=== PATIENT | female | born 1980 | race Caucasian/White ===

== ENCOUNTER 2016-10-21 05:39 | Outpatient (CLI) | payer BC ==
[~2016-10-21] VITALS: Ht 165.1 cm; Wt 67.1 kg
[2016-10-21] MEDS ORDERED: BUPR150T9 PO (13:34)
[2016-10-21] MEDS ORDERED: NALT1TAB PO (13:34)
== END 2016-10-21 13:40 ==
LOC: PREOP 05:39
PROVIDERS: ATTEND Obstetrics & Gynecology
DX: Z01.818 Encounter for other preprocedural examination (principal); N93.8 Other specified abnormal uterine and vaginal bleeding; D64.9 Anemia, unspecified

== ENCOUNTER 2016-10-28 08:56 | Day surgery (SDC) | payer BC ==
--- NOTE | 2016-10-26 14:39 | HISTORY AND PHYSICAL ---
DATE OF ADMISSION: 10/28/2016 The patient has a history of dysfunctional and abnormal bleeding. She has tried oral contraceptive. She has tried cyclic progesterone and her bleeding continues to be intermittent, episodically heavy and unpredictable. She found the oral contraceptives side effects intolerable and could not continue them. She is scheduled now for hysteroscopy with D\T\C and endometrial ablation to be performed on 10/28/2016. ALLERGIES: None. MEDICATIONS: 1. Temovate for lichen sclerosus p.r.n. 2. Bystolic for blood pressure. PAST MEDICAL HISTORY: 1. includes her hypertension. 2. Lichen sclerosus of the labia PAST SURGICAL HISTORY: 1. Includes LEEP procedure in the past on the cervix. 2. Bilateral ganglion cyst removal from the wrist on July 2004. OBSTETRIC HISTORY: Includes a term spontaneous vaginal delivery in April 2008. FAMILY HISTORY: Noncontributory. SOCIAL HISTORY: The patient is . She denies drug, tobacco or alcohol use. She has no history of STDs. REVIEW OF SYSTEMS: As per the HPI. PHYSICAL EXAM: HEENT EXAM: Normal. NECK: Supple with no lymphadenopathy. No thyromegaly. HEART: Regular rhythm with no murmur. CHEST: Clear to auscultation bilaterally. ABDOMEN: Soft, nontender, nondistended. EXTREMITIES: Extremities show no clubbing or cyanosis. There is no Homans sign. PELVIC EXAM: Reveals normal internal and external genitalia. The cervix is parous and benign. There is no cervical motion tenderness. The urethra is well supported. CERVIX: The cervix is normal in size, consistency and contour. There is a small ectropion. UTERUS: Uterus is mid plane to slightly anteverted, normal in consistency in contour. ADNEXAL EXAM: Is unremarkable. ASSESSMENT: Dysfunctional and irregular bleeding in a patient with possible history of PCO and with ultrasound findings that are not definitive. She has tried oral contraceptives and cyclic progesterone without satisfactory effect on her bleeding. The plan now is hysteroscopy with the D\T\C and proceed with GEA at the same time. Her has had a vasectomy. Their childbearing desires have been fulfilled. The patient has been counseled regarding surgical risks, complications, recovery follow-up recurrence of her bleeding and failure to cure. All of her questions have been answered. She is ready to proceed. The procedure is scheduled for October 28, 2016. Job ID: [id number] Dictated Date: 10/26/2016 13:46:54 Deaf Interpreter Date: 10/26/2016 14:28:36/noemí
[~2016-10-28] VITALS: Ht 165.1 cm; Wt 67.1 kg
[~2016-10-28 08:56] MED LIST: BUPR150T9 PO; NALT1TAB PO
[2016-10-28 09:19] LABS: RED BLOOD COUNT 4.48 10^6/uL (4.35-5.85); RED CELL DISTRIBUTION WIDTH 12.1 % (10.0-14.5); WHITE BLOOD COUNT 6.8 10^3/uL (4.3-11.0)
[2016-10-28 09:20] VITALS: BP 135/81
[2016-10-28] MEDS ORDERED: LACTATED RINGERS 1,000 ML IV PRN (09:25)
[2016-10-28] MEDS ORDERED: ceFAZolin 1,000 MG (ANCEF) VIAL ONE (09:39)
[2016-10-28] MEDS ORDERED: NS (IVPB) 50 ML ONE (09:39)
[2016-10-28] MEDS ORDERED: MIDAZOLAM 2 MG/2 ML (VERSED) VIAL ONE (09:57)
[2016-10-28] MEDS ORDERED: proPOfol 200 MG/20 ML (DIPRIVAN) VIAL IV ONE (09:57)
[2016-10-28] MEDS ORDERED: fentaNYL INJECTION 100 MCG/2 ML AMP ONE (09:57)
[2016-10-28] MEDS ORDERED: LIDOCAINE PF 2% 10 ML (XYLOCAINE) AMP ONE (09:57)
[2016-10-28] MEDS ORDERED: CATHETER FLUSH 10 ML SYR IV PRN (10:00)
[2016-10-28] MEDS ORDERED: ceFAZolin 1 GM/NS 50 ML IVPB IV ONE ×2 (10:00)
[2016-10-28] MEDS ORDERED: D5 LR IV SOLUTION 1,000 ML IV SCH (10:20)
--- NOTE | 2016-10-28 10:20 | Progress Note-Pre Operative ---
Pre-Operative Progress Note H&P Reviewed The H&P was reviewed, patient examined and no changes noted. Date H&P Reviewed: Oct 28, 2016 Time H&P Reviewed: 10:20 Pre-Operative Diagnosis: DYSFUNCTIONAL UTERINE BLEEDING/MENOMETRORRHAGIA JONAS CARMONA MD Oct 28, 2016 10:20 am
[2016-10-28] MEDS ORDERED: OXYC-202 PO (10:22)
[2016-10-28] MEDS ORDERED: SEVOFLURANE (ULTANE) 15 ML INHAL SOLN ONE ×2 (10:23→11:15)
[2016-10-28] MEDS ORDERED: LACTATED RINGERS 1,000 ML IV ONE ×2 (10:23→11:08)
--- NOTE | 2016-10-28 10:23 | Discharge Instructions ---
Discharge Instructions Discharge Medications New, Converted or Re-Newed RX: RX on Chart Patient Instructions Patient Instructions: DIRECTED Return to The Hospital For: DIRECTED Activity & Diet Discharge Diet: No Restrictions Activity as Tolerated: No Orders-Post D/C & Referrals Follow Up Appt: Call to make follow up appt. for patient in 2 weeks. Activity: Rest for 24 hours, than as tolerated. Diet: As tolerated-Clear Liquids only if nauseated. Tomorrow, may shower or tub bathe as desired. No driving for 24 hours, no alcoholic beverages for 24 hours, and nothing per vagina (no tampons, douching, or intercourse) for 2 weeks. Patient to return to the clinic as soon as possible for: Temperature greater than 101F, Severe Pain, Foul discharge from incision or vagina, Excessive Bleeding (more than a period). JONAS CARMONA MD Oct 28, 2016 10:23 am
[2016-10-28] MEDS ORDERED: PROMETHAZINE INJ 25 MG/ML (PHENERGAN) AMP IM ONE (10:30)
[2016-10-28] MEDS ORDERED: oxyCODONE/APAP 10/325MG (PERCOCET 10) TABLET PO PRN (10:30)
[2016-10-28] MEDS ORDERED: KETOROLAC 30 MG/ML VIAL IVP ONE ×2 (10:30→11:45)
[2016-10-28] MEDS ORDERED: ONDANSETRON 4 MG/2 ML (SDV) Z0FRAN IVP PRN ×2 (10:30→11:45)
[2016-10-28] MEDS ORDERED: MEPERIDINE (DEMEROL) INJ 100 MG/ML IM ONE (10:30)
[2016-10-28] MEDS: MEPERIDINE (DEMEROL) INJ 50 MG/ML IVP PRN ×2 (11:30→11:35)
[2016-10-28] MEDS ORDERED: MEPERIDINE (DEMEROL) INJ 50 MG/ML ONE (11:34)
[2016-10-28] MEDS ORDERED: morphine INJ 10 MG/ML 1ML (SYR OR VIAL) IVP PRN (11:45)
[2016-10-28] MEDS ORDERED: HYDROmorphone (DILAUDID) 2 MG/ML VIAL IVP PRN (11:45)
[2016-10-28] MEDS ORDERED: fentaNYL INJECTION 100 MCG/2 ML AMP IVP PRN (11:45)
[2016-10-28 12:25] VITALS: BP 138/81
[2016-10-28 12:55] VITALS: BP 153/96
[2016-10-28 13:00] VITALS: BP 138/81
--- NOTE | 2016-10-31 14:00 | OPERATIVE REPORT ---
PROCEDURE PHYSICIAN: JONAS CARMONA DATE OF PROCEDURE: 10/28/2016 PREOPERATIVE DIAGNOSES: 1. Dysfunctional uterine bleeding. 2. Menometrorrhagia. POSTOPERATIVE DIAGNOSES: 1. Dysfunctional uterine bleeding. 2. Menometrorrhagia. OPERATIVE PROCEDURE: Hysteroscopy with directed biopsy and D\T\C followed by global endometrial ablation. OPERATIVE DESCRIPTION: With the patient in the supine position under satisfactory general anesthesia she was repositioned in the dorsal lithotomy position in Gume stirrups and prepped and draped usual fashion for vaginal surgery. The urinary bladder was emptied with a straight catheter. Weighted speculum placed in posterior fornix of vagina. Cervix exposed and grasped anteriorly with single-tooth tenaculum. The uterus sounded to 12 cm with uterine sound. The cervix was then serially dilated with Gianfranco dilators to accommodate a hysteroscope, which was introduced and using glycine as distending medium, the endometrial cavity was examined. There was a polypoid mass emanating from the posterior surface of the uterus. Otherwise, the endometrial cavity appeared to be in the omental phase for this patient. The polypoid mass was biopsied off directly and sent to pathology, labeled, as such. The endometrial cavity was then sharply curettaged in all 4 quadrants to a good uterine cry with removal of a small amount of additional tissue. The hysteroscope was reintroduced now as a resectoscope using rollerball and power setting of 55 alcaraz. The endometrial cavity was cauterized starting anteriorly continuing from the right tubal ostium around to the left tubal ostium and insuring good thermal effect throughout. The posterior surface of the uterus was then treated in the same manner. Good thermal effect was noted throughout the endometrial cavity, and down to the internal cervical os and down onto the internal cervical os. The hysteroscope, resectoscope was now removed as was the tenaculum, there was some bleeding from both puncture sites that was controlled with a iturgv-vb-ovwtu suture of 3-0 Vicryl at each puncture site on the anterior cervix. Sponge and needle counts were correct on completion of procedure. Estimated blood loss was less than 50 mL. Approximately 2000 mL of glycine were used and almost 2000 mL were recovered. The patient tolerated the procedure well, and was uneventfully awakened from general anesthesia and transferred to recovery room in stable condition. Job ID: [id number] Dictated Date: 10/28/2016 11:21:25 Architect Manager Date: 10/31/2016 13:55:05 / beltran
== END 2016-10-28 13:12 | disposition home or self-care (01) ==
LOC: SDC 08:56
PROVIDERS: ATTEND Obstetrics & Gynecology
DX: N93.8 Other specified abnormal uterine and vaginal bleeding (principal); N92.1 Excessive and frequent menstruation with irregular cycle
CPT/HCPCS: 36415; 84703; 85027; 87081; 88305

== ENCOUNTER → 2019-01-30 | Outpatient (CLI) | payer OTHER ==
[~2019-01-30] MED LIST changes: +OXYC1TAB12 PO
[2019-01-30 07:52] LABS: BASOPHILS # (AUTO) 0.1 10^3/uL (0.0-0.1); BASOPHILS % (AUTO) 1 % (0-10); EOSINOPHILS # (AUTO) 0.3 10^3/uL (0.0-0.3); EOSINOPHILS % (AUTO) 3 % (0-10); HEMATOCRIT 43 % (35-52); HEMOGLOBIN 14.2 G/DL (11.5-16.0); LYMPHOCYTES # (AUTO) 2.1 X 10^3 (1.0-4.0); LYMPHOCYTES % (AUTO) 25 % (12-44); MEAN CORPUSCULAR HEMOGLOBIN 31 PG (25-34); MEAN CORPUSCULAR HGB CONC 33 G/DL (32-36); MEAN CORPUSCULAR VOLUME 95 FL (80-99); MEAN PLATELET VOLUME 9.2 FL (7.4-10.4); MONOCYTES # (AUTO) 0.6 X 10^3 (0.0-1.0); MONOCYTES % (AUTO) 8 % (0-12); NEUTROPHILS # (AUTO) 5.4 X 10^3 (1.8-7.8); NEUTROPHILS % (AUTO) 64 % (42-75); PLATELET COUNT 305 10^3/uL (130-400); WHITE BLOOD COUNT 8.4 10^3/uL (4.3-11.0)
[2019-01-30 08:12] LABS: ALANINE AMINOTRANSFERASE 20 U/L (0-55); ALBUMIN 3.5 GM/DL (3.2-4.5); ALKALINE PHOSPHATASE 67 U/L (40-136); BILIRUBIN,TOTAL 0.4 MG/DL (0.1-1.0); BUN/CREATININE RATIO 11; CALCIUM 8.7 MG/DL (8.5-10.1); CARBON DIOXIDE 23 MMOL/L (21-32); CHLORIDE 109 MMOL/L (98-107); CHOLESTEROL 176 MG/DL (< 200); CREATININE SERUM 0.83 MG/DL (0.60-1.30); GFR ESTIMATED > 60; GLUCOSE 109 MG/DL (70-105); HDL CHOLESTEROL 55 MG/DL (40-60); POTASSIUM 3.9 MMOL/L (3.6-5.0); SODIUM 139 MMOL/L (135-145); TOTAL PROTEIN 5.8 GM/DL (6.4-8.2); TRIGLYCERIDES 97 MG/DL (<150); VLDL CHOLESTEROL 19 MG/DL (5-40)
[2019-01-30 08:18] LABS: ERYTHROCYTE SEDIMENTATION RATE 4 MM/HR (0-20)
== END ==
LOC: LAB 07:27
PROVIDERS: ATTEND Nurse Practitioner Family
DX: M79.9 Soft tissue disorder, unspecified (principal)
CPT/HCPCS: 36415; 80053; 80061; 83036; 84443; 85025; 85652; 86141

== ENCOUNTER 2019-03-01 12:37 | Outpatient (RCR) | payer OTHER | END 2019-05-30 | disposition home or self-care (01) | LOC: CARD 12:37 | PROVIDERS: ATTEND Nurse Practitioner Family | DX: R55 Syncope and collapse (principal); R00.0 Tachycardia, unspecified; R53.83 Other fatigue | CPT/HCPCS: 93225; 93226 ==

== ENCOUNTER → 2019-03-01 | Outpatient (CLI) | payer OTHER | LOC: LAB 07:48 | PROVIDERS: ATTEND Nurse Practitioner Family | DX: R00.0 Tachycardia, unspecified (principal); R55 Syncope and collapse; R53.83 Other fatigue | CPT/HCPCS: 36415; 82728; 86618; 86663; 86664; 86665; 86666; 86668; 86757; 86788; 86789 ==

== ENCOUNTER 2019-07-04 12:07 | Outpatient (CLI) | payer OTHER ==
[~2019-07-04] VITALS: Ht 162.6 cm; Wt 66.8 kg
[2019-07-04 12:16] VITALS: BP 148/97
[2019-07-04 12:54] LABS: BASOPHILS % (AUTO) 0 % (0-10); EOSINOPHILS # (AUTO) 0.2 10^3/uL (0.0-0.3); EOSINOPHILS % (AUTO) 2 % (0-10); HEMATOCRIT 41 % (35-52); HEMOGLOBIN 13.4 G/DL (11.5-16.0); LYMPHOCYTES # (AUTO) 1.8 X 10^3 (1.0-4.0); LYMPHOCYTES % (AUTO) 19 % (12-44); MEAN CORPUSCULAR HEMOGLOBIN 31 PG (25-34); MEAN CORPUSCULAR HGB CONC 33 G/DL (32-36); MEAN CORPUSCULAR VOLUME 94 FL (80-99); MEAN PLATELET VOLUME 9.4 FL (7.4-10.4); MONOCYTES # (AUTO) 0.7 X 10^3 (0.0-1.0); MONOCYTES % (AUTO) 8 % (0-12); NEUTROPHILS # (AUTO) 6.6 X 10^3 (1.8-7.8); NEUTROPHILS % (AUTO) 71 % (42-75); PLATELET COUNT 335 10^3/uL (130-400); WHITE BLOOD COUNT 9.3 10^3/uL (4.3-11.0)
[2019-07-05] MEDS ORDERED: OXYC1TAB87 PO (14:49)
[2019-07-05] MEDS ORDERED: IBUP-1780 PO (14:49)
[2019-07-05] MEDS ORDERED: DOCU-143 PO (14:49)
== END 2019-07-04 14:37 | disposition home or self-care (01) ==
LOC: PREOP 12:07
PROVIDERS: ATTEND Obstetrics & Gynecology
DX: Z01.812 Encounter for preprocedural laboratory examination (principal); Z11.2 Encounter for screening for other bacterial diseases; N93.0 Postcoital and contact bleeding; D64.9 Anemia, unspecified
CPT/HCPCS: 36415; 84703; 85025; 87081

== ENCOUNTER → 2019-12-17 | Outpatient (CLI) | payer OTHER ==
[~2019-12-17] MED LIST changes: +DOCU-143 PO; +IBUP-1780 PO; +OXYC1TAB87 PO
--- NOTE | 2019-12-17 19:58 | Diagnostic Imaging Report ---
EXAM: Digital mammogram bilateral screening COMPARISON: This study was compared to the prior exam of 05/01/2015. There are no current complaints. FINDINGS: The fibroglandular tissue in both breasts is heterogeneously dense. This does limit the sensitivity of this exam. Overall, there has been no significant change when compared to the prior study. There is no primary or secondary sign of malignancy noted. The stereotactic clip in the left breast seen previously is again evident and no different. IMPRESSION: 1. There is no evidence of malignancy. 2. The patient should have her annual bilateral screening mammogram on schedule in December 2020. ACR BI-RADS Category 1: Negative. Result letter will be mailed to the patient. Note: At least 10% of breast cancer is not imaged by mammography. Dictated by: Dictated on workstation # [id number]
== END ==
LOC: RAD 08:35
PROVIDERS: ATTEND Obstetrics & Gynecology
DX: Z12.31 Encounter for screening mammogram for malignant neoplasm of breast (principal)
CPT/HCPCS: 77063; 77067

== ENCOUNTER → 2020-03-27 | Outpatient (CLI) | payer OTHER ==
[2020-03-27 08:03] LABS: BASOPHILS # (AUTO) 0.1 10^3/uL (0.0-0.1); BASOPHILS % (AUTO) 1 % (0-10); EOSINOPHILS # (AUTO) 0.3 10^3/uL (0.0-0.3); EOSINOPHILS % (AUTO) 6 % (0-10); HEMATOCRIT 42 % (35-52); HEMOGLOBIN 14.2 G/DL (11.5-16.0); LYMPHOCYTES # (AUTO) 1.7 X 10^3 (1.0-4.0); LYMPHOCYTES % (AUTO) 27 % (12-44); MEAN CORPUSCULAR HEMOGLOBIN 31 PG (25-34); MEAN CORPUSCULAR HGB CONC 34 G/DL (32-36); MEAN CORPUSCULAR VOLUME 93 FL (80-99); MEAN PLATELET VOLUME 9.4 FL (7.4-10.4); MONOCYTES # (AUTO) 0.5 X 10^3 (0.0-1.0); MONOCYTES % (AUTO) 8 % (0-12); NEUTROPHILS # (AUTO) 3.7 X 10^3 (1.8-7.8); NEUTROPHILS % (AUTO) 59 % (42-75); PLATELET COUNT 334 10^3/uL (130-400); WHITE BLOOD COUNT 6.2 10^3/uL (4.3-11.0)
[2020-03-27 08:15] LABS: CHLORIDE 109 MMOL/L (98-107); SODIUM 141 MMOL/L (135-145)
[2020-03-27 08:16] LABS: CALCIUM 8.8 MG/DL (8.5-10.1)
[2020-03-27 08:17] LABS: GLUCOSE 127 MG/DL (70-105); TOTAL PROTEIN 6.9 GM/DL (6.4-8.2)
[2020-03-27 08:18] LABS: CARBON DIOXIDE 20 MMOL/L (21-32)
[2020-03-27 08:19] LABS: BILIRUBIN,TOTAL 0.3 MG/DL (0.1-1.0)
[2020-03-27 08:20] LABS: ALKALINE PHOSPHATASE 85 U/L (40-136); CREATININE SERUM 0.87 MG/DL (0.60-1.30); GFR ESTIMATED > 60
[2020-03-27 08:21] LABS: BUN/CREATININE RATIO 13
[2020-03-27 08:23] LABS: ALANINE AMINOTRANSFERASE 31 U/L (0-55)
== END ==
LOC: LAB 07:36
PROVIDERS: ATTEND Nurse Practitioner Family
DX: R53.83 Other fatigue (principal); R20.2 Paresthesia of skin
CPT/HCPCS: 36415; 80053; 82306; 82607; 82746; 85025; 86663; 86664; 86665

== ENCOUNTER → 2020-04-03 | Outpatient (CLI) | payer OTHER | LOC: LAB 09:22 | PROVIDERS: ATTEND Family Medicine | DX: R73.09 Other abnormal glucose (principal) | CPT/HCPCS: 36415; 83036 ==

== ENCOUNTER → 2020-06-02 | Outpatient (CLI) | payer OTHER ==
--- NOTE | 2020-06-02 16:52 | Diagnostic Imaging Report ---
INDICATION: Right upper quadrant abdominal pain. TECHNIQUE: Gallbladder sonography performed in the routine fashion. FINDINGS: The liver shows normal echogenicity with no focal lesions. Portal vein is patent. Gallbladder shows multiple mobile gallstones and sludge. There is no significant gallbladder wall thickening or biliary dilatation. The common duct measured 6 mm. There is a normal appearance of the pancreas. Visualized portions of the aorta and IVC are normal. The right kidney measured 9 cm in length. There is no ascites. IMPRESSION: Multiple gallstones as well as sludge in the gallbladder, without gallbladder wall thickening or biliary dilatation. Dictated by: Dictated on workstation # [id number]
== END ==
LOC: RAD 16:00
PROVIDERS: ATTEND Nurse Practitioner Family
DX: K80.20 Calculus of gallbladder without cholecystitis without obstruction (principal)
CPT/HCPCS: 76705

== ENCOUNTER 2020-07-06 05:45 | Outpatient (RCR) | payer OTHER ==
[~2020-07-06] VITALS: Ht 165.1 cm; Wt 70.5 kg
[~2020-07-06 05:45] MED LIST changes: +LANS30TA3 PO; +PANT40TA52 PO
== END 2020-07-06 11:03 | disposition home or self-care (01) ==
LOC: PREOP 05:45
PROVIDERS: ATTEND Surgery
DX: Z01.812 Encounter for preprocedural laboratory examination (principal); K80.20 Calculus of gallbladder without cholecystitis without obstruction; Z20.828 Contact with and (suspected) exposure to other viral communicable diseases
CPT/HCPCS: 87635

== ENCOUNTER 2020-07-08 06:16 | Day surgery (SDC) | payer OTHER ==
[~2020-07-08] VITALS: Ht 165 cm; Wt 71.7 kg
[2020-07-08] VITALS (11 sets, daily range): BP systolic 112–138; BP diastolic 57–87
[2020-07-08] MEDS ORDERED: ceFAZolin INJECTION 1,000 MG in WATER (STERILE) FOR INJECTION 10 ML IV ONE (06:45)
[2020-07-08] MEDS: LACTATED RINGERS 1,000 ML IV PRN ×2 (06:50→08:45)
[2020-07-08] MEDS ORDERED: ONDANSETRON 4 MG/2 ML (SDV) Z0FRAN IV ONE (07:00)
[2020-07-08] MEDS ORDERED: FAMOTIDINE 20MG/2ML IV (PEPCID) IV ONE (07:00)
[2020-07-08 07:02] LABS: BASOPHILS % (AUTO) 0 % (0-10); EOSINOPHILS # (AUTO) 0.3 10^3/uL (0.0-0.3); EOSINOPHILS % (AUTO) 5 % (0-10); HEMATOCRIT 41 % (35-52); HEMOGLOBIN 13.3 g/dL (11.5-16.0); LYMPHOCYTES # (AUTO) 2.1 10^3/uL (1.0-4.0); LYMPHOCYTES % (AUTO) 30 % (12-44); MEAN CORPUSCULAR HEMOGLOBIN 32 pg (25-34); MEAN CORPUSCULAR HGB CONC 33 g/dL (32-36); MEAN CORPUSCULAR VOLUME 96 fL (80-99); MONOCYTES # (AUTO) 0.5 10^3/uL (0.0-1.0); MONOCYTES % (AUTO) 8 % (0-12); NEUTROPHILS # (AUTO) 4.1 10^3/uL (1.8-7.8); NEUTROPHILS % (AUTO) 57 % (42-75); PLATELET COUNT 323 10^3/uL (130-400); WHITE BLOOD COUNT 7.1 10^3/uL (4.3-11.0)
[2020-07-08] MEDS ORDERED: ONDANSETRON 4 MG/2 ML (SDV) Z0FRAN ONE (07:06)
[2020-07-08] MEDS ORDERED: SEVOFLURANE (ULTANE) 15 ML INHAL SOLN ONE ×2 (07:06→09:00)
[2020-07-08] MEDS ORDERED: proPOfol 200 MG/20 ML (DIPRIVAN) VIAL IV ONE (07:06)
[2020-07-08] MEDS ORDERED: LIDOCAINE PF 2% 5 ML (XYLOCAINE) VIAL ONE (07:06)
[2020-07-08] MEDS ORDERED: ROCURONIUM 10 MG/ML 5 ML SYRINGE IV ONE (07:06)
[2020-07-08] MEDS ORDERED: fentaNYL INJECTION 100 MCG/2 ML AMP ONE (07:08)
[2020-07-08] MEDS ORDERED: MIDAZOLAM 2 MG/2 ML (VERSED) VIAL ONE (07:08)
[2020-07-08] MEDS ORDERED: IOPAMIDOL 61% 30 ML (ISOVUE 300) VIAL ONE (07:13)
[2020-07-08] MEDS ORDERED: LIDOCAINE/EPI 1%-1:100,000 (XYLOCAINE) 50 ML ONE (07:13)
[2020-07-08] MEDS ORDERED: GLYCOPYRROLATE 0.2 MG/ML (ROBINUL) 2 ML VIAL ONE (08:47)
[2020-07-08] MEDS ORDERED: NEOSTIGMINE 3 MG/3 ML VIAL ONE (08:47)
--- NOTE | 2020-07-08 09:00 | Progress Note-Post Operative ---
Post-Operative Progess Note Surgeon (s)/Intervention Specialist (s) Surgeon ELOINA BERMAN DO Intervention Specialist: Dr. Welsh to assist in retraction dissection and closure Pre-Operative Diagnosis symptomatic choleliathisis Post-Operative Diagnosis same Procedure & Operative Findings Date of Procedure 07/08/20 Procedure Performed/Findings PROCEDURE: Laparoscopic cholecystectomy with intraoperative cholangiogram. COMPLICATIONS: None. PROCEDURE: The patient was taken to the operating suite and was prepped and draped in sterile fashion. A surgical pause was performed. Just superior to the umbilicus, a 12 mm incision was made. Dissection was taken down to the fascia, which was then scored and grasped with a Mica and the abdomen was then entered. A 0 Vicryl suture was placed in a bptuxl-ul-bnzmm fashion and a Black trocar was placed and secured. Pneumoperitoneum was achieved. A 5mm trochar place in the subxyphoid and 2 in the right upper quadrant. The gallbladder was then grasped and elevated. Small area of adhesions were taken down blunt dissection and cautery. The cystic duct, and cystic artery were then dissected out. Clip was placed on the distal portion of the cystic duct which was then partially transected. An arrow catheter was inserted into the duct. The cholangiogram was then performed. No filing defects and contrast made its way into the duodenum. Catheter removed. Clips were placed on proximal portion of the cystic duct and then the duct was then transected. Clips were placed along the proximal and distal portion of the cystic artery which was then transected. Hook cautery was used to dissect the gallbladder from the gallbladder fossa achieving hemostasis. The gallbladder was placed in an Endobag and removed through the 12 mm trocar site. The abdomen was then reinspected. Copious amounts of irrigation were used to irrigate the abdomen and there were no signs of active bleeding. Hemostasis had been achieved. The 12 mm fascial defect was then closed with 0 Vicryl suture that had been placed in a [id number]-[id number]-qsgkl fashion. The abdomen was then desufflated, the trocars were removed. The abdomen was then washed and dried. The skin was then closed using 4-0 Monocryl in a subcuticular fashion. The abdomen was washed and dried and Skin Affix was place over incisions. Patient tolerated the procedure well without any complications and was taken to the recovery room in stable condition. Anesthesia Type general Estimated Blood Loss Estimated blood loss (mL): minimal Specimens/Packing Specimens Removed gallbladder ELOINA BERMAN DO Jul 08, 2020 09:00
[2020-07-08] MEDS ORDERED: HYDR-4226 PO (09:01)
[2020-07-08] MEDS ORDERED: DOCU-143 PO (09:01)
--- NOTE | 2020-07-08 09:02 | Discharge Inst-Simple/Standard ---
Discharge Inst-Standard Discharge Medications New, Converted or Re-Newed RX: RX on Chart Patient Instructions/Follow Up Plan of Care/Instructions/FU: 2 weeks Timothy Activity as Tolerated: No Discharge Diet: Regular Diet Other Inst to Patient Follow up Appt: Make appointment for 2 weeks. Instructions: No lifting greater than 10 pounds. No strenuous activity. May shower in 24 hours, no tub bath or soaking. Use incentive spirometer at home as directed. No Smoking Skin/Wound Care: You have special glue over incision, it will fall off on it's own. Symptoms to Report: Appetite Changes, Extremity Discoloration, Numbness/Tingling, Swelling Increased, Bleeding Excessive, Eyesight Changes, Pain Increased, Urine Color Change, Constipation(Persistent), Fever over 101 degree F, Pain/Pressure in ches t, Urinating Difficulty, Cough Up/Vomit Blood, Heart Beat Irreg/Pounding, Pain/Pressure in jaw, Vaginal Bleeding Increase, Cramps in feet or legs, Lightheadedness, Pain/Pressure in shoulder, Diarrhea(Persistent), Memory Changes Suddenly, Questions/Concerns, Weight gain consecutive days, Dizziness/Fainting, Nausea/Vomiting, Shortness of Breath, Weight gain over 2 pounds. If eyes or skin turn yellow notify physician. If questions or concerns contact your physician Or seek help at emergency department. ELOINA BERMAN DO Jul 08, 2020 09:02
--- NOTE | 2020-07-08 09:07 | Anesthesia-General Post-Op ---
General Patient Condition Mental Status/LOC: Same as Preop Cardiovascular: Satisfactory Nausea/Vomiting: Absent Respiratory: Satisfactory Pain: Controlled Complications: Absent Post Op Complications Complications None Follow Up Care/Instructions Patient Instructions None needed. Anesthesia/Patient Condition Patient Condition Patient is doing well, no complaints, stable vital signs, no apparent adverse anesthesia problems. No complications reported per nursing. ANAHI RDZ CRNA Jul 08, 2020 09:07
[2020-07-08] MEDS ORDERED: morphine INJ 10 MG/ML 1ML (SYR OR VIAL) IVP ONE (09:15)
[2020-07-08] MEDS ORDERED: MEPERIDINE (DEMEROL) INJ 50 MG/ML IVP ONE (09:15)
[2020-07-08] MEDS ORDERED: PROMETHAZINE INJ 25 MG/ML (PHENERGAN) AMP IVP ONE (09:15)
[2020-07-08] MEDS: ONDANSETRON 4 MG/2 ML (SDV) Z0FRAN IVP PRN ×2 (09:30→10:16)
[2020-07-08] MEDS ORDERED: HYDROcodone/APAP 5 MG/325 MG (LORTAB) TAB ONE (10:07)
[2020-07-08] MEDS ORDERED: HYDROcodone/APAP 5 MG/325 MG (LORTAB) TAB PO ONE (10:15)
--- NOTE | 2020-07-08 14:42 | Diagnostic Imaging Report ---
INDICATION: Cholecystectomy. EXAMINATION: 6 seconds of fluoroscopy time were utilized during laparoscopic cholecystectomy. FINDINGS: Submitted images showed opacification of the central intrahepatic ducts as well as the extrahepatic ducts spilling freely into the duodenum. No suspicious filling defect. IMPRESSION: Fluoroscopy utilized during intraoperative cholangiography with no pathological finding demonstrated. Dictated by: Dictated on workstation # [id number]
== END 2020-07-08 11:10 ==
LOC: SDC 06:16
PROVIDERS: ATTEND Surgery
DX: K80.10 Calculus of gallbladder with chronic cholecystitis without obstruction (principal); K21.9 Gastro-esophageal reflux disease without esophagitis; Z79.899 Other long term (current) drug therapy; Z88.5 Allergy status to narcotic agent; Z90.710 Acquired absence of both cervix and uterus
CPT/HCPCS: 36415; 76000; 85025; 87081; 88304

== ENCOUNTER 2020-07-16 10:57 | Emergency (ER) | payer OTHER ==
[~2020-07-16] VITALS: Ht 165 cm; Wt 70.0 kg
[~2020-07-16 10:57] MED LIST changes: +HYDR-4226 PO
[2020-07-16] MEDS ORDERED: LACTATED RINGERS 1,000 ML IV ONE (11:45)
[2020-07-16] MEDS ORDERED: KETOROLAC 30 MG/ML VIAL IVP ONE (11:45)
--- NOTE | 2020-07-16 11:45 | ED General ---
General Stated Complaint: PAIN FROM SURGERY Source of Information: Patient Exam Limitations: No Limitations History of Present Illness Date Seen by Provider: Jul 16, 2020 Time Seen by Provider: 11:18 Initial Comments Patient presents ER by private conveyance from home with chief complaint of generalized body aches mild nausea, abdominal discomfort, constipation and some mild shortness of air without productive cough. Her symptoms started yesterday and she had a rapid and a send out Covid which were both negative. 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 She had surgery by Dr. Berman earlier in the week for her gallbladder laparoscopically. She is been using hydrocodone for her pain as well as NSAIDs. She is taking Colace and has had decent appetite and fluid intake. She was also started back to work today. Her primary care doctor is Dr. Sapp who started her on several vitamins and medications for prevent ative based on her exposure to COVID-19. Patient has some generalized body aches as well as pain in her left costovertebral angle and dysuria. Allergies and Home Medications Allergies Coded Allergies: codeine (Verified Adverse Reaction, Mild, nausea, 07/08/20) Home Medications Docusate Sodium 100 Mg Capsule, 100 MG PO BID Prescribed by: ELOINA BERMAN on 07/08/20900 Hydrocodone/Acetaminophen 1 Each Tablet, 1 TAB PO Q4-6HR Prescribed by: ELOINA BERMAN on 07/08/20900 Lansoprazole 30 Mg Tab.rap., 30 MG PO DAILY, (Reported) Pantoprazole Sodium 40 Mg Tablet., 40 MG PO DAILY, (Reported) Patient Home Medication List Home Medication List Reviewed: Yes Review of Systems Review of Systems Constitutional: No chills, No diaphoresis EENTM: No ear discharge, No ear pain Respiratory: No cough; short of breath Cardiovascular: No chest pain, No Hx of Intervention, No palpitations Gastrointestinal: abdominal pain, constipation; No diarrhea; nausea; No vomiting Genitourinary: No discharge; dysuria; No frequency : No (Status post hysterectomy) Musculoskeletal: see HPI, back pain; No joint pain All Other Systems Reviewed Negative Unless Noted: Yes Past Klnfpvt-Orflsn-[place] Hx Patient Social History Alcohol Use: Denies Use Recreational Drug Use: No Smoking Status: Never a Smoker Recent Foreign Travel: No Contact w/Someone Who Travel: No Recent Hopitalizations: No Immunizations Up To Date Date of Influenza Vaccine: Apr 16, 2020 Seasonal Allergies Seasonal Allergies: Yes (MILD) Past Medical History Surgeries: Yes (BILAT GANGLION CYSTS, uterine ablation) Hysterectomy Respiratory: No Currently Using CPAP: No Currently Using BIPAP: No Cardiac: No Neurological: No Reproductive Disorders: Yes (DUB) Female Reproductive Disorders: Menstrual Problems, 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 Physical Exam Vital Signs Vital Signs - First Documented Capillary Refill : Height, Weight, BMI Height: 5'5.00" Weight: 148lbs. 0.4oz. [id number]; 26.33 BMI Method: General Appearance: WD/WN, Mild Distress Eyes: Bilateral Eye Normal Inspection, Bilateral Eye PERRL, Bilateral Eye EOMI HEENT: PERRL/EOMI, TMs Normal; No Pharynx Normal (Dry oral mucosa), No Moist Mucous Membranes Neck: Full Range of Motion, Normal Inspection Respiratory: Lungs Clear, Normal Breath Sounds, No Accessory Muscle Use, No Respiratory Distress (Oxygen saturation 98% on room air with nonlabored breat yesica.) Cardiovascular: Regular Rate, Rhythm, No Edema, Normal Peripheral Pulses, Tachycardia (100-105) Gastrointestinal: Normal Bowel Sounds, Soft, Other (Generalized tenderness especially in the epigastric region with well-healing surgical wounds that are clean, dry and intact) Extremity: Normal Capillary Refill, Normal Inspection, Normal Range of Motion Neurologic/Psychiatric: Alert, Oriented x3, No Motor/Sensory Deficits; No Normal Mood/Affect (Mildly anxious affect) Skin: Normal Color, Warm/Dry Progress/Results/Core Measures Suspected Sepsis SIRS Temperature: Pulse: Respiratory Rate: Laboratory Tests 07/16/20 11:35: White Blood Count 7.4 Blood Pressure / Mean: Laboratory Tests 07/16/20 11:35: Creatinine 0.80, Platelet Count 344, Total Bilirubin 0.7 Results/Orders Lab Results Laboratory Tests Test 07/16/20 11:30 07/16/20 11:35 07/16/20 11:40 Range/Units Urine Color YELLOW Urine Clarity CLEAR Urine pH 6.0 5-9 Urine Specific Marshall 1.025 H 1.016-1.022 Urine Protein NEGATIVE NEGATIVE Urine Glucose (UA) NEGATIVE NEGATIVE Urine Ketones NEGATIVE NEGATIVE Urine Nitrite NEGATIVE NEGATIVE Urine Bilirubin NEGATIVE NEGATIVE Urine Urobilinogen 1.0 < = 1.0 MG/DL Urine Leukocyte Esterase NEGATIVE NEGATIVE Urine RBC (Auto) 1+ H NEGATIVE Urine RBC 5-10 H /HPF Urine WBC NONE /HPF Urine Squamous Epithelial Cells 5-10 /HPF Urine Crystals NONE /LPF Urine Bacteria TRACE /HPF Urine Casts NONE /LPF Urine Mucus NEGATIVE /LPF Urine Culture Indicated NO White Blood Count 7.4 4.3-11.0 10^3/uL Red Blood Count 4.61 3.80-5.11 10^6/uL Hemoglobin 14.4 11.5-16.0 g/dL Hematocrit 44 35-52 % Mean Corpuscular Volume 96 80-99 fL Mean Corpuscular Hemoglobin 31 25-34 pg Mean Corpuscular Hemoglobin Concent 32 32-36 g/dL Red Cell Distribution Width 12.0 10.0-14.5 % Platelet Count 344 130-400 10^3/uL Mean Platelet Volume 9.1 9.0-12.2 fL Immature Granulocyte % (Auto) 0 % Neutrophils (%) (Auto) 62 42-75 % Lymphocytes (%) (Auto) 19 12-44 % Monocytes (%) (Auto) 12 0-12 % Eosinophils (%) (Auto) 7 0-10 % Basophils (%) (Auto) 1 0-10 % Neutrophils # (Auto) 4.6 1.8-7.8 10^3/uL Lymphocytes # (Auto) 1.4 1.0-4.0 10^3/uL Monocytes # (Auto) 0.9 0.0-1.0 10^3/uL Eosinophils # (Auto) 0.5 H 0.0-0.3 10^3/uL Basophils # (Auto) 0.1 0.0-0.1 10^3/uL Immature Granulocyte # (Auto) 0.0 0.0-0.1 10^3/uL Sodium Level 137 135-145 MMOL/L Potassium Level 3.9 3.6-5.0 MMOL/L Chloride Level 102 98-107 MMOL/L Carbon Dioxide Level 26 21-32 MMOL/L Anion Gap 9 5-14 MMOL/L Blood Urea Nitrogen 11 7-18 MG/DL Creatinine 0.80 0.60-1.30 MG/DL Estimat Glomerular Filtration Rate > 60 BUN/Creatinine Ratio 14 Glucose Level 120 H 70-105 MG/DL Calcium Level 9.5 8.5-10.1 MG/DL Corrected Calcium 9.3 8.5-10.1 MG/DL Total Bilirubin 0.7 0.1-1.0 MG/DL Aspartate Amino Transf (AST/SGOT) 287 H 5-34 U/L Alanine Aminotransferase (ALT/SGPT) 251 H 0-55 U/L Alkaline Phosphatase 367 H 40-136 U/L Total Protein 7.8 6.4-8.2 GM/DL Albumin 4.3 3.2-4.5 GM/DL Lipase 246 H 8-78 U/L Micro Results Microbiology 07/16/20 Influenza Types A,B Antigen (LESLIE) - Final, Complete My Orders Orders - BRITTANI WERNER Ed Iv/Invasive Line Start (07/16/20 11:35) Lactated Ringers (Lr 1000 Ml Iv Solution (07/16/20 11:45) Ketorolac Injection (Toradol Injection) (07/16/20 11:45) Cbc With Automated Diff (07/16/20 11:35) Comprehensive Metabolic Panel (07/16/20 11:35) Lipase (07/16/20 11:35) Ua Culture If Indicated (07/16/20 11:35) Chest 1 View, Ap/Pa Only (07/16/20 11:35) Covid 19 Inhouse Test (07/16/20 11:35) Influenza A And B Antigens (07/16/20 11:35) Medications Given in ED Current Medications Medications Dose Ordered Sig/Abigail Route Start Time Stop Time Status Last Admin Dose Admin Ketorolac Tromethamine 30 mg ONCE ONCE IVP 07/16/20 11:45 07/16/20 11:46 DC 07/16/20 11:49 30 MG Lactated Ringer's 1,000 ml @ 0 mls/hr Q0M ONCE IV 07/16/20 11:45 07/16/20 11:46 DC 07/16/20 11:49 1,000 MLS/HR Vital Signs/I&O 07/16/20 07/16/20 11:20 11:20 Temp 37.1 Pulse 103 Resp 14 B/P (MAP) 155/92 (113) O2 Delivery Room Air Room Air Capillary Refill : Progress Note #1: Time: 11:43 Progress Note She appears to be mildly dry with elevated heart rate and dry oral mucosa. Plan to give her a liter of fluids some Toradol and check some basic labs including lipase and liver enzymes and bilirubin. We will get a urinalysis since she is having dysuria and left costovertebral tenderness. We have repeated a send out Covid test as well as influenza screen which she has not had done yet. Progress Note #2: Time: 12:16 Progress Note Patient has significant control of pain with the Toradol alone. She is feeling much better as her IV fluids are infusing. She says she always has a little bit of blood in her urine and has had cystoscopy and other work-up and never found a reason for it. She does have a history of kidney stone however she says this pain does not feel like that. We did offer a CT scan and at this time she would prefer just to observe. Diagnostic Imaging Diagonstic Imaging: Xray Plain Films/CT/US/NM/MRI: chest Comments [facility], [place] NAME: DIONI SEVERINO [facility] REC#: [id number] PT STATUS: REG ER : 1980 PHYSICIAN: BRITTANI WERNER MD ADMIT DATE: 07/16/20/ER Draft Date of Exam:07/16/20 CHEST 1 VIEW, AP/PA ONLY EXAM: CHEST 1 VIEW, AP/PA ONLY INDICATION: Shortness of air. COMPARISON: Chest radiograph 09/14/2009. FINDINGS: Normal heart size and central pulmonary vascularity. No focal pulmonary opacity, pleural effusion or pneumothorax. No acute osseous findings. No significant change. IMPRESSION: No acute cardiopulmonary findings. Dictated on workstation # [id number] Dict: 07/16/20 1209 Trans: 07/16/20 1214 [facility] [id number] Interpreted by: PARISA HUIZAR MD Electronically signed by: Reviewed: Reviewed by Me Departure Impression Primary Impression: Person under investigation for COVID-19 Additional Impressions: Gastroenteritis and colitis, viral Viral syndrome Mild dehydration Disposition: 01 HOME, SELF-CARE Condition: Stable Departure-Patient Inst. Decision time for Depature: 12:51 Referrals: ALMA DELIA SAPP MD (PCP/Family) Primary Care Physician Patient Instructions: Viral Gastroenteritis, Adult (DC), Coronavirus Disease 2019 (COVID-19) ED Add. Discharge Instructions: Should have the results of your Covid screening test in the next couple days. Ondansetron 1 to 2 tablets every 6 hours under the tongue as necessary for nausea. If you develop diarrhea then take 2 tablets of loperamide/Imodium. Every 4 hours afterwards that you are still having loose, watery diarrhea then you should take another tablet. When your stool becomes semiformed then you should stop taking Imodium. Tylenol 1000 mg every 8 hours as necessary for body aches. Ibuprofen 800 mg every 8 hours or naproxen/Aleve 2 tablets twice a day for body aches and pain. Return to the ER for worsening shortness of air pain or other worrisome symptoms. Drink lots of fluids. Scripts Oxycodone HCl/Acetaminophen (Percocet 5-325 mg Tablet) 1 Each Tablet 1-2 TAB PO Q6H PRN for PAIN-BREAKTHROUGH MDD 6 TABS for 7 Days, #20 TAB 0 Refills Prov: BRITTANI WERNER 07/16/20 Ondansetron (Ondansetron Odt) 4 Mg Tab.rapdis 4-8 MG PO Q6H PRN for NAUSEA/VOMITING, #15 TAB 0 Refills Prov: BRITTANI WERNER 07/16/20 BRITTANI WERNER Jul 16, 2020 11:45
[2020-07-16 11:52] LABS: BILIRUBIN,URINE NEGATIVE (NEGATIVE); CLARITY,URINE CLEAR; COLOR,URINE YELLOW; GLUCOSE, URINE (UA) NEGATIVE (NEGATIVE); KETONES,URINE NEGATIVE (NEGATIVE); LEUKOCYTE ESTERASE ,URINE NEGATIVE (NEGATIVE); NITRITE,URINE NEGATIVE (NEGATIVE); PROTEIN,URINE NEGATIVE (NEGATIVE)
[2020-07-16 11:53] LABS: BASOPHILS # (AUTO) 0.1 10^3/uL (0.0-0.1); BASOPHILS % (AUTO) 1 % (0-10); EOSINOPHILS # (AUTO) 0.5 10^3/uL (0.0-0.3); EOSINOPHILS % (AUTO) 7 % (0-10); HEMATOCRIT 44 % (35-52); HEMOGLOBIN 14.4 g/dL (11.5-16.0); LYMPHOCYTES # (AUTO) 1.4 10^3/uL (1.0-4.0); LYMPHOCYTES % (AUTO) 19 % (12-44); MEAN CORPUSCULAR HEMOGLOBIN 31 pg (25-34); MEAN CORPUSCULAR HGB CONC 32 g/dL (32-36); MEAN CORPUSCULAR VOLUME 96 fL (80-99); MEAN PLATELET VOLUME 9.1 fL (9.0-12.2); MONOCYTES # (AUTO) 0.9 10^3/uL (0.0-1.0); MONOCYTES % (AUTO) 12 % (0-12); NEUTROPHILS # (AUTO) 4.6 10^3/uL (1.8-7.8); NEUTROPHILS % (AUTO) 62 % (42-75); PLATELET COUNT 344 10^3/uL (130-400); WHITE BLOOD COUNT 7.4 10^3/uL (4.3-11.0)
[2020-07-16 12:00] LABS: BACTERIA,URINE TRACE /HPF
[2020-07-16 12:02] LABS: ALBUMIN 4.3 GM/DL (3.2-4.5); CHLORIDE 102 MMOL/L (98-107); POTASSIUM 3.9 MMOL/L (3.6-5.0); SODIUM 137 MMOL/L (135-145)
[2020-07-16 12:03] LABS: CALCIUM 9.5 MG/DL (8.5-10.1)
[2020-07-16 12:04] LABS: GLUCOSE 120 MG/DL (70-105); TOTAL PROTEIN 7.8 GM/DL (6.4-8.2)
[2020-07-16 12:05] LABS: CARBON DIOXIDE 26 MMOL/L (21-32)
[2020-07-16 12:06] LABS: BILIRUBIN,TOTAL 0.7 MG/DL (0.1-1.0)
[2020-07-16 12:08] LABS: ALKALINE PHOSPHATASE 367 U/L (40-136); GFR ESTIMATED > 60
[2020-07-16 12:09] LABS: BUN/CREATININE RATIO 14
[2020-07-16 12:11] LABS: ALANINE AMINOTRANSFERASE 251 U/L (0-55); LIPASE 246 U/L (8-78)
--- NOTE | 2020-07-16 12:14 | Diagnostic Imaging Report ---
EXAM: CHEST 1 VIEW, AP/PA ONLY INDICATION: Shortness of air. COMPARISON: Chest radiograph 09/14/2009. FINDINGS: Normal heart size and central pulmonary vascularity. No focal pulmonary opacity, pleural effusion or pneumothorax. No acute osseous findings. No significant change. IMPRESSION: No acute cardiopulmonary findings. Dictated by: Dictated on workstation # [id number]
[2020-07-16] MEDS ORDERED: OXYC1TAB87 PO (13:14)
[2020-07-16] MEDS ORDERED: ONDA4TAB11 PO (13:14)
[2020-07-16 13:32] VITALS: BP 151/78
== END 2020-07-16 13:33 | disposition home or self-care (01) ==
LOC: EDUNIT# 10:57 → ER 11:02
DX: U07.1 COVID-19 (principal); A08.4 Viral intestinal infection, unspecified; E86.0 Dehydration; F41.9 Anxiety disorder, unspecified; Z88.5 Allergy status to narcotic agent
CPT/HCPCS: 71045; 80053; 81000; 83690; 85025; 87804; 99284; U0002; 36415; 87635

== ENCOUNTER → 2020-07-25 | Outpatient (CLI) | payer OTHER ==
[~2020-07-25] MED LIST changes: +ONDA4TAB11 PO
[2020-07-25 11:11] LABS: TOTAL PROTEIN 7.2 GM/DL (6.4-8.2)
[2020-07-25 11:13] LABS: BILIRUBIN,TOTAL 0.5 MG/DL (0.1-1.0)
[2020-07-25 11:17] LABS: BILIRUBIN,DIRECT 0.2 MG/DL (0.0-0.3); BILIRUBIN,INDIRECT 0.3 MG/DL
== END ==
LOC: LAB 10:34
PROVIDERS: ATTEND Family Medicine
DX: R94.5 Abnormal results of liver function studies (principal)
CPT/HCPCS: 36415; 80076; 83690

== ENCOUNTER → 2020-11-16 | Outpatient (CLI) | payer OTHER ==
[2020-11-16 08:23] LABS: BASOPHILS # (AUTO) 0.1 10^3/uL (0.0-0.1); BASOPHILS % (AUTO) 1 % (0-10); EOSINOPHILS # (AUTO) 0.3 10^3/uL (0.0-0.3); EOSINOPHILS % (AUTO) 4 % (0-10); HEMATOCRIT 44 % (35-52); HEMOGLOBIN 14.4 g/dL (11.5-16.0); LYMPHOCYTES # (AUTO) 1.8 10^3/uL (1.0-4.0); LYMPHOCYTES % (AUTO) 24 % (12-44); MEAN CORPUSCULAR HEMOGLOBIN 31 pg (25-34); MEAN CORPUSCULAR HGB CONC 33 g/dL (32-36); MEAN CORPUSCULAR VOLUME 95 fL (80-99); MEAN PLATELET VOLUME 9.4 fL (9.0-12.2); MONOCYTES # (AUTO) 0.5 10^3/uL (0.0-1.0); MONOCYTES % (AUTO) 7 % (0-12); NEUTROPHILS # (AUTO) 4.9 10^3/uL (1.8-7.8); NEUTROPHILS % (AUTO) 65 % (42-75); PLATELET COUNT 323 10^3/uL (130-400); WHITE BLOOD COUNT 7.5 10^3/uL (4.3-11.0)
[2020-11-16 08:41] LABS: ALANINE AMINOTRANSFERASE 17 U/L (0-55); ALBUMIN 4.1 GM/DL (3.2-4.5); ALKALINE PHOSPHATASE 96 U/L (40-136); BILIRUBIN,TOTAL 0.3 MG/DL (0.1-1.0); BUN/CREATININE RATIO 10; CALCIUM 8.7 MG/DL (8.5-10.1); CARBON DIOXIDE 24 MMOL/L (21-32); CHLORIDE 107 MMOL/L (98-107); CREATININE SERUM 0.84 MG/DL (0.60-1.30); GFR ESTIMATED > 60; GLUCOSE 113 MG/DL (70-105); POTASSIUM 4.1 MMOL/L (3.6-5.0); SODIUM 139 MMOL/L (135-145)
[2020-11-16 10:36] LABS: BILIRUBIN,URINE NEGATIVE (NEGATIVE); CLARITY,URINE CLEAR; COLOR,URINE YELLOW; GLUCOSE, URINE (UA) NEGATIVE (NEGATIVE); KETONES,URINE NEGATIVE (NEGATIVE); LEUKOCYTE ESTERASE ,URINE NEGATIVE (NEGATIVE); NITRITE,URINE NEGATIVE (NEGATIVE); PROTEIN,URINE NEGATIVE (NEGATIVE)
[2020-11-16 10:53] LABS: BACTERIA,URINE MODERATE /HPF; WBC,URINE 0-2 /HPF
== END ==
LOC: LAB 08:00
PROVIDERS: ATTEND Family Medicine
DX: Z01.812 Encounter for preprocedural laboratory examination (principal)
CPT/HCPCS: 36415; 80053; 81000; 85025; 85610; 85730; 87088

== ENCOUNTER 2020-12-22 15:00 | Outpatient (RCR) | payer OTHER | END 2021-01-18 12:26 | disposition home or self-care (01) | PROVIDERS: ATTEND Family Medicine | DX: M79.89 Other specified soft tissue disorders (principal) ==

== ENCOUNTER → 2021-01-05 | Outpatient (CLI) | payer OTHER ==
--- NOTE | 2021-01-05 15:34 | Diagnostic Imaging Report ---
INDICATION: Routine screening. COMPARISON is made with prior mammograms from 12/17/2019 and 05/01/2015. 2-D and 3-D bilateral screening mammography was performed with CAD. Both breasts are heterogeneously dense, limiting the sensitivity of mammography. A biopsy clip lateral left breast is again noted. No dominant mass or malignant appearing microcalcifications are seen. Occasional benign calcifications are noted. Axillae are unremarkable. IMPRESSION: BI-RADS Category 2 No mammographic features suspicious for malignancy are identified. ACR BI-RADS Category 2: Benign findings. Result letter will be mailed to the patient. Note: At least 10% of breast cancer is not imaged by mammography. Dictated by: Dictated on workstation # [id number]
== END ==
LOC: RAD 15:45
PROVIDERS: ATTEND Nurse Practitioner Family
DX: Z12.31 Encounter for screening mammogram for malignant neoplasm of breast (principal)
CPT/HCPCS: 77063; 77067

== ENCOUNTER 2021-03-17 20:55 | Emergency (ER) | payer OTHER ==
[~2021-03-17] VITALS: Ht 165.1 cm; Wt 60.0 kg
--- NOTE | 2021-03-17 21:57 | Diagnostic Imaging Report ---
PROCEDURE: CT head and CT cervical spine without contrast. TECHNIQUE: Multiple contiguous axial images were obtained through the brain and cervical spine without the use of intravenous contrast. Sagittal and coronal reformations through the cervical spine were then performed. Auto Exposure Controls were utilized during the CT exam to meet ALARA standards for radiation dose reduction. INDICATION: Trauma, fall, pain COMPARISON: Imaging from the same date FINDINGS: No intracranial hemorrhage. No intracranial mass, mass effect, midline shift, herniation, hydrocephalus, or extra-axial fluid collection. No CT evidence of an acute ischemic infarction. The orbits are unremarkable. The calvarium and extracalvarial soft tissues are unremarkable. The paranasal sinuses are clear. Alignment of the cervical spine is well maintained. Alignment of the atlantooccipital joint is well maintained. Vertebral body heights are well-maintained. Mild multilevel disc space height loss. No acute fracture or dislocation. No destructive osseous process. Lobulated mild hyperdensity is identified within the anterior aspect of the central spinal canal extending from the C3 level through the C6 level. This is resulting in mild central canal stenosis at these levels. No apical pneumothorax. IMPRESSION: No acute intracranial abnormality. No acute osseous abnormality within the cervical spine with mild multilevel degenerative changes present. Lobulated hyperdensity within the anterior aspect of the central spinal canal extending from C3 through C6. This is favored to relate to thickening of the posterior longitudinal ligament. Disc extrusions is an additional consideration. Epidural hematoma felt unlikely though not completely excluded. An MRI of the cervical spine would help to further evaluate this region as well as evaluate for underlying central canal stenosis within the mid cervical spine. Dictated by: Dictated on workstation # [id number]
--- NOTE | 2021-03-17 21:58 | Diagnostic Imaging Report ---
EXAMINATION: Right shoulder radiographs, 3 views. COMPARISON: None. HISTORY: 40-year-old female, right shoulder pain. FINDINGS: The acromioclavicular joint is normally aligned. There are no acromioclavicular degenerative changes. The humeral head is normally positioned relative to the glenoid. There is no identified acute fracture. The glenohumeral joint space appears well-maintained. IMPRESSION: Unremarkable right shoulder radiographs. Dictated by: Dictated on workstation # [id number]
--- NOTE | 2021-03-17 21:59 | Diagnostic Imaging Report ---
PROCEDURE: CT thoracic and lumbar spine without contrast. TECHNIQUE: Multiple contiguous axial images were obtained through the thoracic and lumbar spine without the use of intravenous contrast. Sagittal and coronal reformations were then performed. All CT scans use one or more of the following dose optimizing techniques: automated exposure control, MA and/or KvP adjustment based on a patient size and exam type, or iterative reconstruction. INDICATION: Trauma, pain due to trauma COMPARISON: Imaging from same date FINDINGS: Alignment of the thoracolumbar spine is well maintained without significant anterolisthesis or retrolisthesis. Vertebral body heights are well-maintained. No severe disc space height loss. No acute fracture or dislocation. No destructive osseous process. No high-grade osseous central canal or neural foraminal stenosis. No pneumothorax within the [id number]. Surgical clips within the right upper quadrant of the abdomen. The paraspinal soft tissues are otherwise unremarkable. IMPRESSION: No acute osseous abnormality with mild degenerative changes within the thoracolumbar spine. Dictated by: Dictated on workstation # [id number]
--- NOTE | 2021-03-17 22:00 | Diagnostic Imaging Report ---
INDICATION: Pelvic pain, fall COMPARISON: Imaging from the same date TECHNIQUE: Single radiograph of the pelvis dated 03/17/2021 FINDINGS: No acute fracture or dislocation. No destructive osseous process. The sacroiliac joints and pubic symphysis are intact. No suspicious radiopaque foreign body. IMPRESSION: No acute osseous abnormality. Dictated by: Dictated on workstation # [id number]
--- NOTE | 2021-03-17 22:02 | Diagnostic Imaging Report ---
INDICATION: Trauma, pain due to trauma COMPARISON: 07/16/2020 TECHNIQUE: Single radiograph of the chest dated 03/17/2021 FINDINGS: The cardiac silhouette is within normal limits in size. No significant pulmonary vascular congestion. The lungs are clear. No pleural effusion. No pneumothorax. No acute osseous abnormality. Surgical clips within the right upper quadrant of the abdomen. IMPRESSION: No acute cardiopulmonary abnormality. Dictated by: Dictated on workstation # [id number]
[2021-03-17] MEDS ORDERED: fentaNYL INJ 100 MCG/2 ML AMP IVP STA (22:08)
--- NOTE | 2021-03-17 22:10 | Diagnostic Imaging Report ---
PROCEDURE: CT pelvis without contrast. TECHNIQUE: Multiple contiguous axial images were obtained through the pelvis without the use of intravenous contrast. Sagittal and coronal reformations were performed. Auto Exposure Controls were utilized during the CT exam to meet ALARA standards for radiation dose reduction. INDICATION: Trauma, fall, pain from trauma COMPARISON: Imaging from same date. FINDINGS: No acute fracture or dislocation. No destructive osseous process. The sacroiliac joints and pubic symphysis are intact. No abnormal collapse or sclerosis within the femoral heads. The urinary bladder is unremarkable. No large volume free fluid within the pelvis. Appendectomy. No free air. No evidence of bowel obstruction within the [id number]. IMPRESSION: No acute osseous abnormality. Dictated by: Dictated on workstation # [id number]
--- NOTE | 2021-03-17 22:13 | ED Fall/Injury ---
General Chief Complaint: Trauma-Non Activation Stated Complaint: FALL / COCCYX PAIN / HEAD INJ Nursing Triage Note: Pt ambulatory into ER from home in obvious pain. Pt states that she was standing on a chair on her concrete porch and the chair leg gave out causing her to fall landing on her buttocks. Pt states that she then fell backwards striking head on fire pit. Pt denies loss of consciousness, but states that the fall was 4-5'. Pain to buttocks, right shoulder, and neck. Pain at a 6/10. Source: patient History of Present Illness Date Seen by Provider: Mar 17, 2021 Time Seen by Provider: 21:00 Initial Comments PT ARRIVES VIA POV FROM HOME STATES ABOUT 1999 TONIGHT, SHE WAS STANDING ON A CHAIR, ON A CONCRETE PORCH, AND THE CHAIR LEG "GAVE OUT" AND SHE FELL OFF THE CHAIR (APPROXIMATELY 2 FEET), LANDED ON HER BUTTOCKS ON CONCRETE PORCH, THEN HER HEAD FLEW BACK AND HIT A FIRE PIT THAT WAS ON THE PORCH AND THEN SHE PITCHED FORWARD AND SLID OFF THE PORCH ( APPROXIMATELY 2 1/2-3 FEET) , AND LANDED ON HER FEET. NO LOSS OF CONSCIOUSNESS C/O PAIN TO HEAD AND BUTTOCKS/TAILBONE PT HAS HAD ONGOING PAIN IN RIGHT SHOULDER/TRAPEZIUS/NECK AREA AND HAS BEEN HAVING A HARD TIME TURNING HER NECK DUE TO PAIN, HAD A MASSAGE AND IT HELPED RIGHT SHOULDER IS HURTING WORSE SINCE THE FALL, BUT DID NOT ACTUALLY HIT HER SHOULDER NO PARESTHESIAS OR MOTOR DEFICITS NO LEG OR HIP PAIN HAS SOME ABRASIONS TO FINGERS LAST TETANUS IS >5 YEARS LMP--S/P HYSTERECTOMY PCP: DR. PEREZ Allergies and Home Medications Allergies Coded Allergies: codeine (Verified Adverse Reaction, Mild, nausea, 07/08/20) Home Medications Cyclobenzaprine HCl 10 Mg Tablet, 10 MG PO Q8H PRN for SPASMS Prescribed by: INDERJIT TENORIO on 03/17/212217 Docusate Sodium 100 Mg Capsule, 100 MG PO BID Prescribed by: ELOINA BERMAN on 07/08/20900 Hydrocodone/Acetaminophen 1 Each Tablet, 1 TAB PO Q4-6HR Prescribed by: ELOINA BERMAN on 07/08/20900 Ketorolac Tromethamine 10 Mg Tablet, 10 MG PO Q6H Prescribed by: INDERJIT TENORIO on 03/17/212217 Lansoprazole 30 Mg Tab.rap.dr, 30 MG PO DAILY, (Reported) Ondansetron 4 Mg Tab.rapdis, 4-8 MG PO Q6H PRN for NAUSEA/VOMITING Prescribed by: BRITTANI WERNER on 07/16/20 1314 Oxycodone HCl/Acetaminophen 1 Each Tablet, 1-2 TAB PO Q6H PRN for PAIN- BREAKTHROUGH Prescribed by: BRITTANI WERNER on 07/16/20 1314 Pantoprazole Sodium 40 Mg Tablet., 40 MG PO DAILY, (Reported) Tramadol HCl 50 Mg Tablet, 50 MG PO Q4H Prescribed by: INDERJIT TENORIO on 03/17/212218 Patient Home Medication List Home Medication List Reviewed: Yes Review of Systems Review of Systems Constitutional: no symptoms reported Eyes: No Symptoms Reported Ears, Nose, Mouth, Throat: no symptoms reported Respiratory: no symptoms reported Cardiovascular: no symptoms reported Gastrointestinal: no symptoms reported Genitourinary: no symptoms reported Musculoskeletal: see HPI Skin: see HPI Psychiatric/Neurological: See HPI, Headache; Denies Numbness, Denies Paresthesia, Denies Seizure, Denies Tingling, Denies Weakness Past Vhchobj-Eyrrsl-Iwkuzu Hx Patient Social History Tobacco Use?: No Use of E-Cig and/or Vaping dev: No Substance use?: No Alcohol Use?: No Immunizations Up To Date Influenza Vaccine Up-to-Date: No; Not Current Second COVID19 Vaccination [place]: 08/06 COVID19 Vaccine [employer] C[employer]ian: Moderna Seasonal Allergies Seasonal Allergies: Yes (MILD) Past Medical History Surgery/Hospitalization HX: BILATERAL GANGLION CYSTS REMOVED UTERINE ABLATION HYSTERECTOMY, WITH UNILATERAL SALPINGO-OOPHORECTOMY LAPAROSCOPIC CHOLECYSTECTOMY 07/08/[address] BERMAN Surgeries: Yes (BILAT GANGLION CYSTS, uterine ablation) Gallbladder, Hysterectomy Respiratory: No Currently Using CPAP: No Currently Using BIPAP: No Cardiac: No Neurological: No Reproductive Disorders: Yes (DUB) Female Reproductive Disorders: Menstrual Problems, Ovarian Cyst [employer] History: Hysterectomy Sexually Transmitted Disease: Yes (HPV-LEEP) HIV/AIDS: No Genitourinary: No Kidney Stones Gastrointestinal: Yes (S/P NEHEMIAS) Gastroesophageal Reflux, Gall Bladder Disease Musculoskeletal: No (BILATERAL GANGLION CYSTS) Endocrine: No HEENT: No Loss of Vision: Denies Hearing Impairment: Denies Cancer: No Psychosocial: No Integumentary: No Blood Disorders: No Adverse Reaction/Blood Tranf: No (N/A) Family Medical History Patient reports no known family medical history. Physical Exam Vital Signs Vital Signs - First Documented 03/17/21 20:59 Temp 36.6 Pulse 85 Resp 16 B/P (MAP) 148/79 (102) Pulse Ox 99 O2 Delivery Room Air Capillary Refill : Less Than 3 Seconds Height, Weight, BMI Height: 5'5.00" Weight: 148lbs. 0.4oz. 67.504969xl; 22.00 BMI Method: General Appearance: WD/WN, no apparent distress HEENT: PERRL/EOMI Neck: tender lateral, tender midline Cardiovascular: normal peripheral pulses, regular rate, rhythm, no murmur Respiratory: chest non-tender, normal breath sounds, no respiratory distress, no accessory muscle use Gastrointestinal: non tender, soft Back: other (TENDERNESS TO LOWER LUMBAR, SACRUM/COCCYX AREA) Extremities: normal range of motion, no pedal edema, no calf tenderness, normal capillary refill, other (ABRASIONS TO LEFT FINGERS; NO FOOT/ANKLE/LEG TENDERNESS OR EXTERNAL EVIDENCE OF TRAUMA. MILD RIGHT SHOULDER/TRAPEZIUS TENDERNESS WITH MUSCLE SPASMS TO RIGHT TRAPEZIUS) Neurologic/Psychiatric: clinical specialty rep II-XII nml as tested, no motor/sensory deficits, alert, normal mood/affect, oriented x 3 Skin: normal color, warm/dry Progress/Results/Core Measures Results/Orders My Orders Orders - INDERJIT TENORIO DO Ct Head/Cervical Spine Wo (03/17/21 21:12) Ct Thoracic/Lumbar Spine Wo (03/17/21 21:12) Chest 1 View, Ap/Pa Only (03/17/21 21:12) Shoulder, Right, 3 Views (03/17/21 21:12) Pelvis (03/17/21 21:12) Ct Pelvis Wo (03/17/21 21:12) Ed Iv/Invasive Line Start (03/17/21 21:12) Cervical Collar (03/17/21 21:12) Fentanyl Inj (Sublimaze Injection) (03/17/21 22:08) Dipht,Pertuss(Acell),Tet Adult (Boostrix (03/17/21 22:15) Orphenadrine Inj (Ed Only) (Norflex Inje (03/17/21 22:30) Dipht,Pertuss(Acell),Tet Adult (Boostrix (03/17/21 22:25) Medications Given in ED Current Medications Medications Dose Ordered Sig/Abigail Route Start Time Stop Time Status Last Admin Dose Admin Orphenadrine Citrate 60 mg ONCE ONCE IV 03/17/21 22:30 03/17/21 22:31 DC 03/17/21 22:34 60 MG Vital Signs/I&O 03/17/21 03/17/21 20:59 22:38 Temp 36.6 Pulse 85 73 Resp 16 16 B/P (MAP) 148/79 (102) 146/91 Pulse Ox 99 99 O2 Delivery Room Air Room Air Blood Pressure Mean: 102 Progress Progress Note : Progress Note CERVICAL COLLAR APPLIED ON ARRIVAL UNEVENTFUL ER STAY PT AMBULATES OUT ON HER OWN Diagnostic Imaging Comments ALL PER RADIOLOGIST REPORTS AT 2211: CXR-- FINDINGS: The cardiac silhouette is within normal limits in size. No significant pulmonary vascular congestion. The lungs are clear. No pleural effusion. No pneumothorax. No acute osseous abnormality. Surgical clips within the right upper quadrant of the abdomen. IMPRESSION: No acute cardiopulmonary abnormality. RIGHT SHOULDER-- FINDINGS: The acromioclavicular joint is normally aligned. There are no acromioclavicular degenerative changes. The humeral head is normally positioned relative to the glenoid. There is no identified acute fracture. The glenohumeral joint space appears well-maintained. IMPRESSION: Unremarkable right shoulder radiographs. PELVIS XRAY-- FINDINGS: No acute fracture or dislocation. No destructive osseous process. The sacroiliac joints and pubic symphysis are intact. No suspicious radiopaque foreign body. IMPRESSION: No acute osseous abnormality. CT HEAD/CERVICAL SPINE-- FINDINGS: No intracranial hemorrhage. No intracranial mass, mass effect, midline shift, herniation, hydrocephalus, or extra-axial fluid collection. No CT evidence of an acute ischemic infarction. The orbits are unremarkable. The calvarium and extracalvarial soft tissues are unremarkable. The paranasal sinuses are clear. Alignment of the cervical spine is well maintained. Alignment of the atlantooccipital joint is well maintained. Vertebral body heights are well-maintained. Mild multilevel disc space height loss. No acute fracture or dislocation. No destructive osseous process. Lobulated mild hyperdensity is identified within the anterior aspect of the central spinal canal extending from the C3 level through the C6 level. This is resulting in mild central canal stenosis at these levels. No apical pneumothorax. IMPRESSION: No acute intracranial abnormality. No acute osseous abnormality within the cervical spine with mild multilevel degenerative changes present. Lobulated hyperdensity within the anterior aspect of the central spinal canal extending from C3 through C6. This is favored to relate to thickening of the posterior longitudinal ligament. Disc extrusions is an additional consideration. Epidural hematoma felt unlikely though not completely excluded. An MRI of the cervical spine would help to further evaluate this region as well as evaluate for underlying central canal stenosis within the mid cervical spine. CT THORACIC/LUMBAR SPINE-- FINDINGS: Alignment of the thoracolumbar spine is well maintained without significant anterolisthesis or retrolisthesis. Vertebral body heights are well-maintained. No severe disc space height loss. No acute fracture or dislocation. No destructive osseous process. No high-grade osseous central canal or neural foraminal stenosis. No pneumothorax within the [id number]. Surgical clips within the right upper quadrant of the abdomen. The paraspinal soft tissues are otherwise unremarkable. IMPRESSION: No acute osseous abnormality with mild degenerative changes within the thoracolumbar spine. CT PELVIS-- FINDINGS: No acute fracture or dislocation. No destructive osseous process. The sacroiliac joints and pubic symphysis are intact. No abnormal collapse or sclerosis within the femoral heads. The urinary bladder is unremarkable. No large volume free fluid within the pelvis. Appendectomy. No free air. No evidence of bowel obstruction within the gcrhy-id-omst. IMPRESSION: No acute osseous abnormality. Reviewed: Reviewed by Me Departure Impression Primary Impression: Fall involving chair as cause of accidental injury in home as place of occurrence Additional Impressions: Closed head injury without loss of consciousness CERVICAL SPINE STRAIN SACRAL/COCCYX CONTUSION Low back strain RIGHT SHOULDER AND TRAPEZIUS STRAIN Ylhqxgaufz-mapbfudrm-gzydcps (DPT) vaccination administered at current visit Abrasions of multiple sites Disposition: 01 HOME, SELF-CARE Condition: Stable Departure-Patient Inst. Decision time for Depature: 22:11 Referrals: ALMA DELIA PEREZ MD (PCP/Family) Primary Care Physician Patient Instructions: Abrasions ED, Back Muscle Strain (DC), Cervical Sprain ED, Coccyx Injury (DC), Concussion, Adult ED, Using Cold for Pain, Muscle Strain ED Add. Discharge Instructions: ICE TO SORE AREAS AT 20 MINUTE INTERVALS FOR FIRST 1-2 DAYS, THEN ALTERNATE ICE AND HEAT TO SORE AREAS AT 20 MINUTE INTERVALS FOLLOW UP WITH DR. PEREZ OR DR. LONG ( TRAUMA SURGEON) IN 3-4 DAYS FOR FURTHER CARE All discharge instructions reviewed with patient and/or family. Voiced understanding. Scripts Tramadol HCl (Ultram) 50 Mg Tablet 50 MG PO Q4H for Pain, #20 TAB Prov: INDERJIT TENORIO DO 03/17/21 Ketorolac Tromethamine (Ketorolac Tromethamine) 10 Mg Tablet 10 MG PO Q6H for Pain, #15 TAB Prov: INDERJIT TENORIO DO 03/17/21 Cyclobenzaprine HCl (Cyclobenzaprine HCl) 10 Mg Tablet 10 MG PO Q8H PRN for SPASMS, #15 TAB 0 Refills Prov: INDERJIT TENORIO DO 03/17/21 INDERJIT TENORIO DO Mar 17, 2021 22:13
[2021-03-17] MEDS ORDERED: TETANUS,DIPTH,PERTUSS P/F (BOOSTRIX) 0.5 ML VIAL IM ONE ×2 (22:15→22:25)
[2021-03-17] MEDS ORDERED: KETO10TA PO (22:18)
[2021-03-17] MEDS ORDERED: CYCL10TA9 PO (22:18)
[2021-03-17] MEDS ORDERED: TRAM-42 PO (22:18)
[2021-03-17] MEDS ORDERED: ORPHENADRINE 60 MG/2 ML (NORFLEX) AMP (ED ONLY) IV ONE (22:30)
[2021-03-17 22:38] VITALS: BP 146/91
== END 2021-03-17 22:31 | disposition home or self-care (01) ==
LOC: EDUNIT# 20:55 → ER 20:58
DX: S39.012A Strain of muscle, fascia and tendon of lower back, initial encounter (principal); S16.1XXA Strain of muscle, fascia and tendon at neck level, initial encounter; S46.911A Strain of unspecified muscle, fascia and tendon at shoulder and upper arm level, right arm, initial encounter; S34.139A Unspecified injury to sacral spinal cord, initial encounter; S09.90XA Unspecified injury of head, initial encounter; S60.419A Abrasion of unspecified finger, initial encounter; K21.9 Gastro-esophageal reflux disease without esophagitis; Z23 Encounter for immunization; Z79.899 Other long term (current) drug therapy; W07.XXXA Fall from chair, initial encounter
CPT/HCPCS: 70450; 71045; 72125; 72128; 72131; 72170; 72192; 73030

== ENCOUNTER → 2021-08-10 | Outpatient (CLI) | payer OTHER ==
[~2021-08-10] MED LIST changes: +CYCL10TA25 PO; +KETO10TA PO; +TRAM-42 PO
[2021-08-10 09:05] LABS: BASOPHILS # (AUTO) 0.1 10^3/uL (0.0-0.1); BASOPHILS % (AUTO) 1 % (0-10); EOSINOPHILS # (AUTO) 0.2 10^3/uL (0.0-0.3); EOSINOPHILS % (AUTO) 3 % (0-10); HEMATOCRIT 45 % (35-52); HEMOGLOBIN 14.8 g/dL (11.5-16.0); LYMPHOCYTES # (AUTO) 1.6 10^3/uL (1.0-4.0); LYMPHOCYTES % (AUTO) 20 % (12-44); MEAN CORPUSCULAR HEMOGLOBIN 32 pg (25-34); MEAN CORPUSCULAR HGB CONC 33 g/dL (32-36); MEAN CORPUSCULAR VOLUME 96 fL (80-99); MEAN PLATELET VOLUME 8.9 fL (9.0-12.2); MONOCYTES # (AUTO) 0.6 10^3/uL (0.0-1.0); MONOCYTES % (AUTO) 8 % (0-12); NEUTROPHILS # (AUTO) 5.4 10^3/uL (1.8-7.8); NEUTROPHILS % (AUTO) 68 % (42-75); PLATELET COUNT 310 10^3/uL (130-400)
[2021-08-10 09:23] LABS: ALBUMIN 4.1 GM/DL (3.2-4.5); BILIRUBIN,TOTAL 0.8 MG/DL (0.1-1.0); CALCIUM 8.9 MG/DL (8.5-10.1); CREATININE SERUM 0.86 MG/DL (0.60-1.30); POTASSIUM 4.4 MMOL/L (3.6-5.0); TOTAL PROTEIN 6.8 GM/DL (6.4-8.2)
== END ==
LOC: LAB 08:51
PROVIDERS: ATTEND Nurse Practitioner Family
DX: Z00.00 Encounter for general adult medical examination without abnormal findings (principal)
CPT/HCPCS: 36415; 80053; 80061; 85025

== ENCOUNTER → 2021-08-20 | Outpatient (CLI) | payer OTHER | LOC: LAB 15:54 | PROVIDERS: ATTEND Nurse Practitioner Family | DX: R53.83 Other fatigue (principal) | CPT/HCPCS: 36415; 84443 ==

== ENCOUNTER → 2022-01-07 | Outpatient (CLI) | payer OTHER ==
--- NOTE | 2022-01-10 09:42 | Diagnostic Imaging Report ---
Indication: Routine screening. Comparison is made with prior mammogram 01/05/2021 and 12/17/2019. 2-D and 3-D bilateral screening mammography was performed with CAD. CAD is utilized. The current study was also evaluated with a Computer Aided Detection (CAD) system. Both breasts are heterogeneously dense, limiting the sensitivity of mammography. A biopsy clip in the upper left breast again noted. There are benign calcifications. No mass or malignant-appearing microcalcifications are seen. Axillae are unremarkable. IMPRESSION: BI-RADS Category 2 No mammographic features suspicious for malignancy are identified. ACR BI-RADS Category 2: Benign findings. Result letter will be mailed to the patient. Note: At least 10% of breast cancer is not imaged by mammography. Dictated by: Dictated on workstation # [id number]
== END ==
LOC: RAD 12:14
PROVIDERS: ATTEND Family Medicine
DX: Z12.31 Encounter for screening mammogram for malignant neoplasm of breast (principal)
CPT/HCPCS: 77063; 77067

== ENCOUNTER 2022-06-14 11:15 | Outpatient (RCR) | payer OTHER | END 2022-06-15 | disposition home or self-care (01) | PROVIDERS: ATTEND Nurse Practitioner Family | DX: M50.20 Other cervical disc displacement, unspecified cervical region (principal) ==

== ENCOUNTER 2022-06-21 10:21 | Outpatient (RCR) | payer OTHER | END 2022-07-16 | disposition home or self-care (01) | PROVIDERS: ATTEND Nurse Practitioner Family | DX: M50.10 Cervical disc disorder with radiculopathy, unspecified cervical region (principal) ==

== ENCOUNTER → 2023-01-09 | Outpatient (CLI) | payer OTHER ==
--- NOTE | 2023-01-09 11:12 | Diagnostic Imaging Report ---
INDICATION: Routine screening. Comparison is made with prior mammogram from 01/07/2022 and 01/05/2021. 2-D and 3-D bilateral screening mammography was performed with CAD. The current study was also evaluated with a Computer Aided Detection (CAD) system. Both breasts are heterogeneously dense, limiting the sensitivity of mammography. The parenchymal pattern is stable. The biopsy clip in the upper left breast again noted. There are scattered benign calcifications. No mass or malignant-appearing microcalcifications are seen. Axillae are unremarkable. IMPRESSION: BI-RADS Category 2 No mammographic features suspicious for malignancy are identified. ACR BI-RADS Category 2: Benign findings. Result letter will be mailed to the patient. Note: At least 10% of breast cancer is not imaged by mammography. Dictated by: Dictated on workstation # [id number]
== END ==
LOC: RAD 09:03
PROVIDERS: ATTEND Obstetrics & Gynecology
DX: Z12.31 Encounter for screening mammogram for malignant neoplasm of breast (principal)
CPT/HCPCS: 77063; 77067

== ENCOUNTER → 2023-05-18 | Outpatient (CLI) | payer OTHER ==
[2023-05-18 08:41] LABS: BASOPHILS % (AUTO) 1 % (0-10); EOSINOPHILS # (AUTO) 0.1 10^3/uL (0.0-0.3); EOSINOPHILS % (AUTO) 2 % (0-10); HEMATOCRIT 43 % (35-52); HEMOGLOBIN 14.6 g/dL (11.5-16.0); LYMPHOCYTES # (AUTO) 1.6 10^3/uL (1.0-4.0); LYMPHOCYTES % (AUTO) 22 % (12-44); MEAN CORPUSCULAR HEMOGLOBIN 32 pg (25-34); MEAN CORPUSCULAR HGB CONC 34 g/dL (32-36); MEAN CORPUSCULAR VOLUME 95 fL (80-99); MEAN PLATELET VOLUME 8.7 fL (9.0-12.2); MONOCYTES # (AUTO) 0.4 10^3/uL (0.0-1.0); MONOCYTES % (AUTO) 6 % (0-12); NEUTROPHILS # (AUTO) 4.8 10^3/uL (1.8-7.8); NEUTROPHILS % (AUTO) 69 % (42-75); PLATELET COUNT 316 10^3/uL (130-400)
[2023-05-18 08:50] LABS: ALBUMIN 4.2 GM/DL (3.2-4.5); POTASSIUM 4.1 MMOL/L (3.6-5.0)
[2023-05-18 08:53] LABS: TOTAL PROTEIN 7.3 GM/DL (6.4-8.2)
[2023-05-18 08:54] LABS: BILIRUBIN,TOTAL 0.5 MG/DL (0.1-1.0)
[2023-05-18 08:56] LABS: CREATININE SERUM 0.9 MG/DL (0.60-1.30)
[2023-05-18 09:19] LABS: TSH (THYROID ANALYZER) 0.8 UIU/ML (0.35-4.94)
== END ==
LOC: LAB 07:47
PROVIDERS: ATTEND Obstetrics & Gynecology
DX: Z00.00 Encounter for general adult medical examination without abnormal findings (principal); Z13.220 Encounter for screening for lipoid disorders; Z13.29 Encounter for screening for other suspected endocrine disorder; Z13.1 Encounter for screening for diabetes mellitus
CPT/HCPCS: 36415; 80053; 80061; 83036; 84443; 85025